=== PATIENT | male | born 1955 ===

== ENCOUNTER 2020-12-22 04:38 | Day surgery (SDC) | payer OTHER ==
[2020-12-22 09:05] VITALS: TEMP 97.5
[2020-12-22] MEDS ORDERED: LIDOCAINE VISCOUS 2% ORAL/TOP 20 ML UNIT-DOSE CUP ONE (09:22)
[2020-12-22 10:10] VITALS: BP 135/85; PULSE 79
== END 2020-12-22 09:56 | disposition home or self-care (01) ==
LOC: JASU-SURG 04:38
PROVIDERS: ATTEND Internal Medicine Gastroenterology
PROC: 0DBL8ZX Excision of Transverse Colon, Via Natural or Artificial Opening Endoscopic, Diagnostic (ICD-10-PCS; principal; 2020-12-22 09:00)
DX: Z12.11 Encounter for screening for malignant neoplasm of colon (principal); D12.3 Benign neoplasm of transverse colon; K57.30 Diverticulosis of large intestine without perforation or abscess without bleeding; K64.8 Other hemorrhoids; K52.9 Noninfective gastroenteritis and colitis, unspecified
CPT/HCPCS: 45380; 88305-TC; C9803; U0003; U0005